=== PATIENT | male | born 1975 | race Caucasian/White ===

== ENCOUNTER 2019-12-24 05:34 | Day surgery (SDC) | payer OTHER ==
[2019-12-22 12:17] LABS: BASOPHILS # (AUTO) 0.1 X10'3 (0-0.2); BASOPHILS % (AUTO) 0.7 % (0-1); EOSINOPHILS # (AUTO) 0.2 X10'3 (0-0.9); EOSINOPHILS % (AUTO) 1.7 % (0-6); LYMPHOCYTES # (AUTO) 2.3 X10'3 (1.1-4.8); LYMPHOCYTES % (AUTO) 22.1 % (21-51); MEAN CORPUSCULAR HEMOGLOBIN 28.7 PG (27.0-31.0); MEAN CORPUSCULAR HGB CONC 33.9 g/dL (33.0-36.5); MEAN CORPUSCULAR VOLUME 84.7 FL (78-98); MONOCYTES # (AUTO) 0.9 X10'3 (0-0.9); MONOCYTES % (AUTO) 8.3 % (2-12); NEUTROPHILS # (AUTO) 6.9 X10'3 (1.8-7.7); NEUTROPHILS % (AUTO) 67.2 % (42-75); PRE OP HEMATOCRIT 40.6 % (42.0-52.0); PRE OP HEMOGLOBIN 13.8 g/dL (14.0-17.9); PRE OP PLATELET COUNT 298 X10'3 (140-440); RED CELL DISTRIBUTION WIDTH 13.7 % (11.5-14.5)
[2019-12-22 12:32] LABS: ALBUMIN/GLOBULIN RATIO 0.9 (1.1-1.5); ALKALINE PHOSPHATASE 106 IU/L (46-116); BLOOD UREA NITROGEN 11 MG/DL (7-18); BUN/CREATININE RATIO 13.3 (5.4-32.0); CALCIUM 9.1 MG/DL (8.5-10.1); CHLORIDE 104 MMOL/L (99-107); CREATININE 0.83 MG/DL (0.60-1.10); PRE OP ALT 65 U/L (30-65); PRE OP ANION GAP 9 (8-16); PRE OP AST 28 U/L (10-37); PRE OP BILIRUB, TOTAL 0.3 MG/DL (0.0-1.0); PRE OP GLUCOSE 124 MG/DL (70-104); PRE OP SODIUM 140 MMOL/L (135-145); TOTAL CARBON DIOXIDE 26.9 MMOL/L (24-32); TOTAL PROTEIN 8.4 G/DL (6.4-8.2); eGFR > 90 ML/MIN
[~2019-12-24] VITALS: Ht 193 cm; Wt 197.4 kg
[2019-12-24] VITALS (8 sets, daily range): BP systolic 117–168; BP diastolic 68–108
[~2019-12-24 05:34] MED LIST: OXYM30MI NS; albuterol 2.5 MG/3 ML nebule NEB ONE; cefazolin/dext.iso 2gm/50ml 50 ML IV ONE; famotidine 20mg tablet PO ONE; ringers solution, lacted 1,000 ML IV SCH
[2019-12-24] MEDS ORDERED: LIDOcaine 1% (10mg/ml) 2ml vial ONE (05:58)
[2019-12-24] MEDS ORDERED: ceFAZolin 1GM/D5W- ADD-VANTAGE 50 ML IV ONE (06:00)
[2019-12-24] MEDS ORDERED: BUPIVAcaine/PF 2.5 mg/ml (0.25%) 30ml vial ONE (06:37)
[2019-12-24] MEDS ORDERED: LIDOcaine 1% 30ml preserv. free vial ONE (06:37)
[2019-12-24] MEDS ORDERED: BUPIVAcaine/PF 2.5mg/ml (0.25%) 10ml vial ONE (06:39)
[2019-12-24] MEDS ORDERED: BUPIVACAINE liposomal/PF 13.3 MG/ML vial IM ONE (06:39)
[2019-12-24] MEDS ORDERED: propofol inj 20 ML IV ONE ×2 (07:30→07:47)
[2019-12-24] MEDS ORDERED: fentaNYL /PF 50mcg/ml 5ml ampule ONE (07:30)
[2019-12-24] MEDS ORDERED: LIDOcaine 2% (20mg/ml) 5ml vial ONE (07:30)
[2019-12-24] MEDS ORDERED: midazolam 2 mg/2 ml injection ONE (07:30)
[2019-12-24] MEDS ORDERED: rocuronium 10mg/ml inj IV ONE (07:36)
[2019-12-24] MEDS ORDERED: ondansetron/PF 4mg/2ml inj ONE ×2 (07:46→07:47)
[2019-12-24] MEDS ORDERED: dexamethasone sod phosphate 4mg/ml inj. ONE (07:47)
[2019-12-24] MEDS ORDERED: ringers solution, lacted 1,000 ML IV SCH (08:02)
[2019-12-24] MEDS ORDERED: proCHLORperazine 10 MG/2 ml inj IV PRN (08:05)
[2019-12-24] MEDS ORDERED: morphine 2 MG/ML inj. syringe IV PRN (08:05)
[2019-12-24] MEDS ORDERED: ondansetron/PF 4mg/2ml inj IV PRN (08:05)
[2019-12-24] MEDS ORDERED: meperidine/PF 25mg/ml syringe IV PRN ×2 (08:05)
[2019-12-24] MEDS ORDERED: morphine 4 MG/ML inj SYRINge IV PRN (08:05)
[2019-12-24] MEDS ORDERED: acetaminophen 1,000mg/100ml IV 100 ML IV ONE (08:44)
--- NOTE | 2019-12-24 09:05 | NUR ---
Received from OR via BED , accompanied by Anesthesiologist DR sarah and report given by Anesthesiolgist. PATIENT WAKING UP AND RESPONDING TO ALL QUESTION, V/S WNL MASK TO 10L AND SATS 97% OR ABOVE, NEUROVASCULAR CHECKS INTACT, 20G PIV LEFT HAND, SCD ON, 3 BANDAIDS TO LAP SIGHTS OF ABDOMEN CDI.
[2019-12-24] MEDS: meperidine/PF 25mg/ml syringe IV PRN ×3 (09:11→09:35)
[2019-12-24] MEDS ORDERED: oxyCODONE/APAP 5-325mg tablet PO PRN (09:20)
[2019-12-24] MEDS ORDERED: oxyCODONE/APAP 10/325mg tablet PO PRN (09:20)
[2019-12-24] MEDS ORDERED: oxyCODONE/APAP 10/325mg tablet PO ONE (09:45)
--- NOTE | 2019-12-24 10:15 | NUR ---
Percocet script given to patient written by Dr Phipps
--- NOTE | 2019-12-24 10:19 | NUR ---
Discharged to vehicle by wheelchair without incident. REVIEWED D/C INSTRUCTIONS WITH PATIENT AND FAMILY AND THEY HAVE VERBALIZED UNDERSTANDING. PATIENT D/C HOME WITH ALL BELONGINGS AND FAMILY GAVE TRANSPORT HOME. Pt's IV dc'd. Pt still in 5/10 pain after receiving percocet, given the option to receive more demerol and stay longer in the recovery room. He states "I would rather be in pain at home" and wanted to go home and not receive any more IV pain meds.
== END 2019-12-24 10:19 | disposition home or self-care (01) ==
LOC: PAS 05:34
PROVIDERS: ATTEND Surgery
DX: K42.0 Umbilical hernia with obstruction, without gangrene (principal); G47.30 Sleep apnea, unspecified; I27.29 Other secondary pulmonary hypertension; J44.9 Chronic obstructive pulmonary disease, unspecified; I10 Essential (primary) hypertension; E66.01 Morbid (severe) obesity due to excess calories; Z68.43 Body mass index [BMI] 50.0-59.9, adult; Z98.890 Other specified postprocedural states; Z79.899 Other long term (current) drug therapy; Z98.49 Cataract extraction status, unspecified eye; Z87.891 Personal history of nicotine dependence
CPT/HCPCS: 36415; 49653; 64488; 80053; 82948; 85025; 93005; 94640; 94760; C1781; C9290; J0131; J0690; J1100; J2001; J2175; J2250; J2405; J2704; J3010; J3490; S2900; A4215; A4618; J7120

== ENCOUNTER 2023-03-24 17:51 | Emergency (ER) | payer BC, OTHER ==
[~2023-03-24] VITALS: Ht 193 cm; Wt 164.4 kg
[~2023-03-24 17:51] MED LIST changes: -albuterol 2.5 MG/3 ML nebule NEB ONE; -cefazolin/dext.iso 2gm/50ml 50 ML IV ONE; -famotidine 20mg tablet PO ONE; -ringers solution, lacted 1,000 ML IV SCH
[2023-03-24 17:55] VITALS: BP 160/59
[2023-03-24] MEDS ORDERED: morphine 10mg/ml inj. IM ONE (18:30)
[2023-03-24] MEDS ORDERED: OXYC-150 PO (19:56)
== END 2023-03-24 20:29 | disposition home or self-care (01) ==
LOC: ER 17:54
DX: S46.212A Strain of muscle, fascia and tendon of other parts of biceps, left arm, initial encounter (principal); G89.29 Other chronic pain; M54.9 Dorsalgia, unspecified; Z79.899 Other long term (current) drug therapy; X58.XXXA Exposure to other specified factors, initial encounter; Y93.89 Activity, other specified; Y92.89 Other specified places as the place of occurrence of the external cause; Y99.8 Other external cause status
CPT/HCPCS: 96372; 99283; J2274; A4565